=== PATIENT | female | born 1990 | race Caucasian/White ===

== ENCOUNTER 2018-07-08 16:10 | Emergency (ER) | payer MEDICAID ==
[~2018-07-08] VITALS: Ht 167.6 cm; Wt 75.0 kg
[2018-07-08 16:47] VITALS: BP 129/77; Ht 167.6 cm; Wt 75.0 kg
== END 2018-07-08 19:35 | disposition left against medical advice (07) ==
LOC: D.ER 16:10
DX: S69.90XA Unspecified injury of unspecified wrist, hand and finger(s), initial encounter (principal); X58.XXXA Exposure to other specified factors, initial encounter; Y93.9 Activity, unspecified; Y92.9 Unspecified place or not applicable

== ENCOUNTER 2019-02-22 12:17 | Emergency (ER) | payer MEDICAID ==
[~2019-02-22] VITALS: Ht 167.6 cm; Wt 86.4 kg
[2019-02-22 12:30] VITALS: BP 124/72; Ht 167.6 cm; Wt 86.4 kg
[2019-02-22] MEDS ORDERED: PRENAVITE1 TAB PO (13:20)
== END 2019-02-22 13:57 | disposition home or self-care (01) ==
LOC: D.ER 12:17
DX: Z34.92 Encounter for supervision of normal pregnancy, unspecified, second trimester (principal); Z3A.24 24 weeks gestation of pregnancy

== ENCOUNTER 2019-08-16 16:09 | Emergency (ER) | payer MEDICAID ==
[~2019-08-16] VITALS: Ht 162.6 cm; Wt 68.2 kg
[~2019-08-16 16:09] MED LIST: PRENAVITE1 TAB PO
[2019-08-16 16:12] VITALS: Ht 162.6 cm; Wt 68.2 kg
[2019-08-16] MEDS ORDERED: ULTRAM50 MG PO (17:06)
[2019-08-16 19:13] VITALS: BP 125/89
== END 2019-08-16 19:14 | disposition home or self-care (01) ==
LOC: D.ER 16:09
DX: S16.1XXA Strain of muscle, fascia and tendon at neck level, initial encounter (principal); V49.9XXA Car occupant (driver) (passenger) injured in unspecified traffic accident, initial encounter; S09.93XA Unspecified injury of face, initial encounter; R10.2 Pelvic and perineal pain; F17.200 Nicotine dependence, unspecified, uncomplicated

== ENCOUNTER 2021-04-29 08:23 | Emergency (ER) | payer MEDICAID ==
[~2021-04-29] VITALS: Ht 162.6 cm; Wt 90.9 kg
[~2021-04-29 08:23] MED LIST changes: +ULTRAM50 MG PO
[2021-04-29 08:33] VITALS: BP 131/90; Ht 162.6 cm; Wt 90.9 kg
[2021-04-29] MEDS ORDERED: CEPHALEXIN500 M1 PO (08:35)
[2021-04-29] MEDS ORDERED: IBUPROFEN800 MG PO (08:35)
[2021-04-29] MEDS ORDERED: ACETAMINOPHEN500 M1 PO (08:35)
[2021-04-29] MEDS ORDERED: CYCLOBENZAPRINE10 MG PO (08:35)
[2021-04-29] MEDS ORDERED: ORAL ANALGESIC9 GM TOPICAL (08:35)
== END 2021-04-29 08:30 | disposition home or self-care (01) ==
LOC: D.ER 08:23
DX: K02.9 Dental caries, unspecified (principal); K04.7 Periapical abscess without sinus; K08.89 Other specified disorders of teeth and supporting structures